=== PATIENT | male | born 1950 | race Caucasian/White ===

== ENCOUNTER 2025-03-12 10:38 | Emergency (ER) | payer SELFPAY ==
[2025-03-12 11:12] VITALS: BP 163/74; PULSE 59; RESP 18; TEMP 36.3; O2SAT 97; BMI 23.7
--- NOTE | 2025-03-12 11:17 | DI.RAD.S_ITS ---
PROCEDURE: XR CHEST 1V INDICATIONS: Chest Pain TECHNIQUE: One view of the chest was acquired. COMPARISON: None. FINDINGS: Surgical changes and devices: None. Lungs and pleura: Lungs are clear. No pleural effusions or pneumothorax. Mediastinum: Mediastinal contours appear normal. Heart size is normal. Bones and chest wall: No suspicious bony lesions. Overlying soft tissues appear unremarkable. IMPRESSION: No acute cardiopulmonary abnormality is seen. Dictated by: Dejan Putnam M.D. on 03/12/2025 at 11:52 Approved by: Dejan Putnam M.D. on 03/12/2025 at 11:52
--- NOTE | 2025-03-12 11:38 | EKG_ITS ---
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
[2025-03-12 11:43] LABS: Add Manual Diff / Slide Review NO; Hematocrit 43.9 % (41-53); Hemoglobin 15.5 g/dL (13.5-17.5); Lymphocytes Absolute Auto 1200 /uL (1100-4500); Mean Corpuscular HGB Conc 35.2 % (30-36); Mean Corpuscular Hemoglobin 32.0 PG (26-34); Mean Corpuscular Volume 90.9 fL (80-100); Platelet Count 201 X10^3/uL (150-400)
--- NOTE | 2025-03-12 11:49 | ED.ARRPALP ---
HPI - Arrhythmia/Palpitations General Chief Complaint: Arrhythmia/Palpitations Stated Complaint: TachicardiaX2/Heart disease/High BP/SOB/2 stents Time Seen by Provider: 03/12/25 10:40 Source: patient Mode of arrival: Ambulatory History of Present Illness HPI narrative: 74-year-old gentleman history of CAD x 2 stents presents with tachycardia 110 and 124 on home monitor last evening after eating [place] food with extra soy sauce but asymptomatic otherwise. He denies any chest pain shortness of breath dyspnea on exertion leg pain leg swelling headache dizziness blurred vision back pain abdominal pain nausea vomiting. He came in to be evaluated as his he is driving home to [place]. Other than what is stated 14 point review of system is negative. Related Data Allergies Allergy/AdvReac Type Severity Reaction Status Date / Time No Known Drug Allergies Allergy Verified 03/12/25 11:12 Review of Systems Review of Systems ROS Unobtainable: All systems reviewed & are unremarkable except as noted in HPI and below Patient History Social History Smoking Status: Never smoker Smoking Status: Never smoker Exam Narrative Exam Narrative: GENERAL: [74] year old patient appears stated age. Well-developed patient, in mild distress. HEAD: Atraumatic. Normocephalic. EYES: Pupils equal round and reactive. Extraocular motions intact. No scleral icterus. No injection or drainage. ENT: Nose without bleeding, purulent drainage. Throat without erythema, tonsillar hypertrophy or exudate. Airway patent. NECK: Trachea midline. Non tender CARDIOVASCULAR: Regular rate and rhythm without murmurs, gallops, or rubs. RESPIRATORY: Clear to auscultation. Breath sounds equal bilaterally. No wheezes, rales, or rhonchi. GASTROINTESTINAL: Abdomen soft, non-tender, nondistended. EXTREMITIES: No edema or joint tenderness. BACK: Nontender without deformity or crepitance. No flank tenderness. NEURO: AOx3. SKIN: No rash or erythema of visible areas Initial Vital Signs Initial Vital Signs: Vital Signs Temperature 97.3 F L 03/12/25 11:12 Pulse Rate 59 L 03/12/25 11:12 Respiratory Rate 18 03/12/25 11:12 Blood Pressure 163/74 H 03/12/25 11:12 Pulse Oximetry 97 03/12/25 11:12 Oxygen Delivery Method Room Air 03/12/25 11:12 Scores HEART Score Heart Score history: Slightly Suspicious Heart Score EKG: Normal Heart Score Age: > or = 65 years old Heart Score risk factors: > 3 risk factors or hx of atherosclerotic disease Heart Score troponin: < or = to normal limit Heart Score Total: 4 Course Orders Ordered: ED Orders 03/12/25 11:17 XR chest 1V Stat EKG-12 Lead Stat 03/12/25 11:32 Complete Blood Count AUTO DIFF Stat Comprehensive Metabolic Panel Stat Lipase Stat Magnesium Stat NT-proBNP (BNP-Adult 18+) Stat PTT Partial Thromboplastin Neal Stat Prothrombin Time INR Stat Troponin & CK Cardiac Panel Stat Discontinued Medications Aspirin (Aspirin 81 Mg Chew Tab) 324 mg PO NOW ONE Stop: 03/12/25 11:18 Vital Signs Vital signs: Vital Signs - 8 hr 03/12/25 11:12 Temperature 97.3 F L Pulse Rate 59 L Respiratory Rate 18 Blood Pressure 163/74 H Pulse Oximetry 97 Oxygen Delivery Method Room Air MDM - Arrhythmia/Palpitations Lab Data 03/12/25 11:32 03/12/25 11:32 Labs: Lab Results 03/12/25 Range/Units 11:32 WBC 6.8 (4.5-11.0) X10^3/uL RBC 4.83 (4.5-5.9) X10^6/uL Hgb 15.5 (13.5-17.5) g/dL Hct 43.9 (41-53) % MCV 90.9 (80-100) fL MCH 32.0 (26-34) PG MCHC 35.2 (30-36) % RDW 14.0 (11.6-14.8) % Plt Count 201 (150-400) X10^3/uL Neut % (Auto) 72.1 (50-75) % Lymph % (Auto) 18.0 L (25-40) % [place] % (Auto) 8.6 (3-14) % Eos % (Auto) 0.7 L (2-4) % Baso % (Auto) 0.6 (0-2) % Neut # (Auto) 4900 (2689-1421) /uL Lymph # (Auto) 1200 (9497-0854) /uL [place] # (Auto) 600 (0-900) /uL Eos # (Auto) 0 (0-450) /uL Baso # (Auto) 0 (0-100) /uL PT 17.0 H (9.4-12.5) SECONDS INR 1.5 H (0.9-1.3) APTT 35 (25.1-36.5) SECONDS Sodium 135 L (137-145) mmol/L Potassium 4.3 (3.4-5.1) mmol/L Chloride 101 (98-107) mmol/L Carbon Dioxide 24 (22-32) mmol/L BUN 12 (9-20) mg/dL Creatinine 0.98 (0.66-1.25) mg/dL Estimated GFR > 60 (>60) mL/min BUN/Creatinine Ratio 12.2 (6-22) Glucose 122 H (70-99) mg/dL Calcium 9.2 (8.4-10.2) mg/dL Magnesium 2.2 (1.6-2.3) mg/dL Total Bilirubin 0.8 (0.2-1.3) mg/dL AST 42 (17-59) IU/L ALT 44 (<50) IU/L Alkaline Phosphatase 42 (38-126) U/L Total Creatine Kinase 204 H (55-170) U/L Troponin I < 0.012 (0.01-0.034) ng/mL NT-Pro-B Natriuret Pep 786 H (<450) pg/mL Total Protein 7.6 (6.3-8.2) g/dL Albumin 4.7 (3.5-5.0) g/dL Globulin 2.9 (1.7-4.1) g/dL Albumin/Globulin Ratio 1.6 (1.0-2.8) Lipase 99 (23-300) U/L Imaging Data Chest x-ray: Radiologist's Impresson: [place] [address] XRay Report Signed Patient: John Kraft MR#: [id number] : 1950 Acct:[id number] Age/Sex: 74 / M Date of Service: 03/12/25 Loc: ED Accession Number: [id number] Procedure: XR chest 1V Ordering Provider: [place] D.O. PROCEDURE: XR CHEST 1V INDICATIONS: Chest Pain TECHNIQUE: One view of the chest was acquired. COMPARISON: None. FINDINGS: Surgical changes and devices: None. Lungs and pleura: Lungs are clear. No pleural effusions or pneumothorax. Mediastinum: Mediastinal contours appear normal. Heart size is normal. Bones and chest wall: No suspicious bony lesions. Overlying soft tissues appear unremarkable. IMPRESSION: No acute cardiopulmonary abnormality is seen. ECG Data Interpretation: Sinus Malik HR 58 OR 172 QRS [address]-t wave change No previous EKG to compare MDM Narrative Medical decision making narrative: All lab work, vital signs, nurse triage note, medication list, previous ER visits, and all imaging studies reviewed. Two sets troponin normal patient asymptomatic at this time. EKG shows sinus bradycardia heart rate of [address] wave change WBC 6.8 hemoglobin 15.5 platelet 201 sodium 135 cm 4.3 chloride 101 CO2 24 BUN 12 creatinine 0.98 magnesium 2.2 BNP 786 2 sets troponin normal. Patient will follow up with PCP in [facility]. Differential diagnosis STEMI,NSTEMI unstable angina CHF electrolyte derangement Discharge Plan Departure Patient Disposition: Home Clinical Impression: Palpitations Instructions: DI for Palpitations Activity Restrictions/Additional Instructions: Return with new or worsening symptoms. Follow up with PCP [facility] this week. Stand Alone Forms: Patient Portal/API
[2025-03-12 11:52] LABS: INR 1.5 (0.9-1.3); Prothrombin Time 17.0 SECONDS (9.4-12.5)
[2025-03-12 11:54] LABS: PTT Partial Thromboplastin Tim 35 SECONDS (25.1-36.5)
[2025-03-12 11:55] LABS: Alanine Aminotransferase 44 IU/L (<50); Albumin 4.7 g/dL (3.5-5.0); Albumin Globulin Ratio 1.6 (1.0-2.8); Alkaline Phosphatase 42 U/L (38-126); Blood Urea Nitrogen 12 mg/dL (9-20); Calcium 9.2 mg/dL (8.4-10.2); Carbon Dioxide 24 mmol/L (22-32); Chloride 101 mmol/L (98-107); Creatine Kinase 204 U/L (55-170); Estimated Glomerular Filt Rate > 60 mL/min (>60); Globulin 2.9 g/dL (1.7-4.1); Glucose 122 mg/dL (70-99); HEMOLYSIS < 15 (0-50); Lipase 99 U/L (23-300); Magnesium 2.2 mg/dL (1.6-2.3); Potassium 4.3 mmol/L (3.4-5.1); Sodium 135 mmol/L (137-145); Total Protein 7.6 g/dL (6.3-8.2)
[2025-03-12 12:07] LABS: NT-proBNP (BNP-Adult 18+) 786 pg/mL (<450); Troponin I < 0.012 ng/mL (0.01-0.034)
[2025-03-12 12:52] LABS: Thyroid Stimulating Hormone 1.18 uIU/mL (0.47-4.68)
[2025-03-12 14:32] LABS: Troponin I < 0.012 ng/mL (0.01-0.034)
[2025-03-12 15:30] VITALS: BP 141/63; PULSE 58; RESP 16; O2SAT 97
== END 2025-03-12 15:38 | disposition home or self-care (01) ==
PROVIDERS: Emergency Provider Family Medicine
DX: R00.0 Tachycardia, unspecified (principal); R00.2 Palpitations; I25.10 Atherosclerotic heart disease of native coronary artery without angina pectoris; R00.1 Bradycardia, unspecified; Z95.5 Presence of coronary angioplasty implant and graft
CPT/HCPCS: 71045; 80053; 82550; 83690; 83735; 83880; 84443; 84484; 85025; 85610; 85730; 93005; 99281; 99284